=== PATIENT | male | born 1995 | race Caucasian/White ===

== ENCOUNTER 2024-01-22 07:35 | Day surgery (SDC) | payer BC ==
[2024-01-22] MEDS ORDERED: fentaNYL 100 MCG/2 ML SDV IV ONE (07:36)
[2024-01-22] MEDS ORDERED: Propofol 200 MG/20 ML SDV IV ONE (07:36)
[2024-01-22] MEDS ORDERED: Midazolam 1 MG/ML 2 ML SDV IV ONE (07:36)
[2024-01-22] MEDS ORDERED: Sodium Chloride 0.9% 10 ML Syringe FLUSH PRN (07:45)
[2024-01-22] MEDS: Lactated Ringers 1,000 ML IV SCH (08:11)
[2024-01-22] MEDS: Simethicone Drops 40 MG/0.6 ML 30 ML Bottle ONE (09:23)
== END 2024-01-22 11:11 | disposition home or self-care (01) ==
LOC: FB.SDS 07:35
PROVIDERS: ATTEND Surgery
DX: K60.2 Anal fissure, unspecified (principal); K62.5 Hemorrhage of anus and rectum
CPT/HCPCS: 00811; 88305; A9270-GY; J2250; J2704; J3010; J7120